=== PATIENT | female | born 1960 | race Caucasian/White ===

== ENCOUNTER 2017-12-15 17:29 | Emergency (ER) | payer BC, MEDICAID ==
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
[2017-12-15 19:57] LABS: PLATELET COUNT 318 10^3/uL (150-400)
[2017-12-15 21:00] VITALS: BP 153/78
== END 2017-12-15 20:45 | disposition home or self-care (01) ==
LOC: EEVIPCON 17:29
DX: K59.00 Constipation, unspecified (principal); I25.10 Atherosclerotic heart disease of native coronary artery without angina pectoris; J45.909 Unspecified asthma, uncomplicated; Z95.5 Presence of coronary angioplasty implant and graft